=== PATIENT | male | born 1990 | race African-American/Black ===

== ENCOUNTER 2021-07-16 04:28 | Inpatient (IN) | payer OTHER ==
[2021-07-16] MEDS ORDERED: KETOROLAC 15 MG/ML 1 ML VIAL IVP STA (05:08)
[2021-07-16] MEDS ORDERED: CLINDAMYCIN 600 MG in DEXTROSE 5% IN WATER 50 ML IVPB STA ×2 (05:08)
[2021-07-16 05:42] LABS: Basophils # (A) 0.1 k/uL (0-0.2); Basophils % (A) 1 %; Eosinophils # (A) 0.3 k/uL (0-0.7); Eosinophils % (A) 2 %; HCT 42.8 % (39.0-53.0); HGB 14.3 gm/dL (13.0-17.5); Lymphocytes # (A) 1.9 k/uL (1.0-4.8); Lymphocytes % (A) 9 %; MCH 30.1 pg (25.0-35.0); MCHC 33.4 g/dL (31.0-37.0); MCV 90.3 fL (80.0-100.0); Mean Platelet Volume 7.7; Monocytes # (A) 0.9 k/uL (0-1.0); Monocytes % (A) 4 %; Neutrophils # (A) 18.7 k/uL (1.3-7.7); Neutrophils % (A) 85 %; Platelet Count 260 k/uL (150-450); RBC 4.74 m/uL (4.30-5.90); RDW 12.1 % (11.5-15.5); WBC 22.2 k/uL (3.8-10.6)
[2021-07-16 05:46] LABS: ALT 32 U/L (4-49); AST 25 U/L (17-59); African American GFR (CKD) >90 (>60 ml/min/1.73 sqM); Alkaline Phosphatase 111 U/L (38-126); Anion Gap 8 mmol/L; Blood Urea Nitrogen 13 mg/dL (9-20); Calcium 9.1 mg/dL (8.4-10.2); Carbon Dioxide 24 mmol/L (22-30); Chloride 103 mmol/L (98-107); Glucose 102 mg/dL (74-99); Non-African American GFR(CKD) >90 (>60 ml/min/1.73 sqM); Potassium 3.7 mmol/L (3.5-5.1); Sodium 135 mmol/L (137-145); Total Bilirubin 1.6 mg/dL (0.2-1.3); Total Protein 7.2 g/dL (6.3-8.2)
--- NOTE | 2021-07-16 06:01 | ED ---
ENT HPI - General Chief complaint: Dental/Oral Stated complaint: dental pain Time Seen by Provider: 07/16/21 04:51 Source: patient Mode of arrival: ambulatory Limitations: no limitations - History of Present Illness Initial comments: This patient is a 31-year-old man who presents here to have evaluation of left mandibular tooth pain and now swelling towards his neck. The patient had onset of pain and swelling to left mandibular tooth approximately 2 weeks ago. 2 weeks ago he saw a dentist who started him on penicillin and had and follow-up. 2 days ago he saw a dentist to placed him on azithromycin and had him go to see an oral surgeon. He saw the oral surgeon yesterday who started him on he believes it was Augmentin and was going to have him follow-up. When the pain worsened tonight and he was noticing more swelling he felt he should be seen here. The patient is not having any dyspnea. He is noting that he has difficulty opening his mandible without pain now. He is able to tolerate his own secretions. Swallowing is not difficult but there is some pain associated. He has not noted fever or chills. No cough. MD complaint: tooth pain, sore throat -: week(s) Location: tooth # (18) Severity: moderate Quality: aching Consistency: constant Improves with: none Worsens with: swallowing, eating Associated Symptoms: gum swelling, toothache, pain with swallowing - Related Data Allergies Allergy/AdvReac Type Severity Reaction Status Date / Time No Known Allergies Allergy Verified 07/16/21 04:45 Review of Systems ROS Statement: Those systems with pertinent positive or pertinent negative responses have been documented in the HPI. ROS Other: All systems not noted in ROS Statement are negative. Constitutional: Denies: fever, chills Eyes: Denies: eye pain, vision change ENT: Reports: throat pain, dental pain. Denies: ear pain Respiratory: Denies: cough, dyspnea, stridor Cardiovascular: Denies: chest pain, syncope Gastrointestinal: Denies: abdominal pain, vomiting Skin: Denies: rash Neurological: Denies: headache, weakness Past Medical History Past Medical History: No Reported History History of Any Multi-Drug Resistant Organisms: None Reported Additional Past Surgical History / Comment(s): dental - wisdom Past Psychological History: No Psychological Hx Reported Smoking Status: Current every day smoker Past Alcohol Use History: Occasional Past Drug Use History: None Reported General Exam Limitations: no limitations General appearance: alert, in no apparent distress Head exam: Present: atraumatic, normocephalic Eye exam: Present: normal appearance, PERRL, EOMI. Absent: scleral icterus, conjunctival injection, periorbital swelling, periorbital tenderness ENT exam: Present: mucous membranes moist, normal external ear exam, other (The patient has left sided facial swelling along the mandible and inferior to the mandible. There is also some tenderness and swelling to the anterior neck.) Neck exam: Present: tenderness, full ROM, other (Anterior neck swelling). Absent: normal inspection, meningismus Respiratory exam: Present: normal lung sounds bilaterally. Absent: respiratory distress, wheezes, rales, rhonchi, stridor Cardiovascular Exam: Present: regular rate, normal rhythm, normal heart sounds. Absent: systolic murmur, diastolic murmur, rubs, gallop Extremities exam: Present: normal inspection Neurological exam: Present: alert Skin exam: Present: warm, dry, intact, normal color. Absent: rash Course Vital Signs 07/16/21 04:43 Temperature 97.8 F Pulse Rate 75 Respiratory 18 Rate Blood Pressure 143/84 O2 Sat by Pulse 99 Oximetry Medical Decision Making - Lab Data Result diagrams: 07/16/21 05:08 07/16/21 05:08 Lab Results 07/16/21 07/16/21 Range/Units 05:08 05:08 WBC 22.2 H (3.8-10.6) k/uL RBC 4.74 (4.30-5.90) m/uL Hgb 14.3 (13.0-17.5) gm/dL Hct 42.8 (39.0-53.0) % MCV 90.3 (80.0-100.0) fL MCH 30.1 (25.0-35.0) pg MCHC 33.4 (31.0-37.0) g/dL RDW 12.1 (11.5-15.5) % Plt Count 260 (150-450) k/uL MPV 7.7 Neutrophils % 85 % Lymphocytes % 9 % Monocytes % 4 % Eosinophils % 2 % Basophils % 1 % Neutrophils # 18.7 H (1.3-7.7) k/uL Lymphocytes # 1.9 (1.0-4.8) k/uL Monocytes # 0.9 (0-1.0) k/uL Eosinophils # 0.3 (0-0.7) k/uL Basophils # 0.1 (0-0.2) k/uL Sodium 135 L (137-145) mmol/L Potassium 3.7 (3.5-5.1) mmol/L Chloride 103 (98-107) mmol/L Carbon Dioxide 24 (22-30) mmol/L Anion Gap 8 mmol/L BUN 13 (9-20) mg/dL Creatinine 0.69 (0.66-1.25) mg/dL Est GFR (CKD-EPI)AfAm >90 (>60 ml/min/1.73 sqM) Est GFR (CKD-EPI)NonAf >90 (>60 ml/min/1.73 sqM) Glucose 102 H (74-99) mg/dL Calcium 9.1 (8.4-10.2) mg/dL Total Bilirubin 1.6 H (0.2-1.3) mg/dL AST 25 (17-59) U/L ALT 32 (4-49) U/L Alkaline Phosphatase 111 (38-126) U/L Total Protein 7.2 (6.3-8.2) g/dL Albumin 4.0 (3.5-5.0) g/dL Disposition Clinical Impression: Dental infection Disposition: ADMITTED IP TO THIS HOSP Is patient prescribed a controlled substance at d/c from ED?: No Referrals: None,Stated [Primary Care Provider] - 1-2 days
--- NOTE | 2021-07-16 06:05 | CT ---
EXAMINATION TYPE: CT soft tissue neck wo con DATE OF EXAM: 07/16/2021 COMPARISON: None HISTORY: left lower jaw swelling and pain. had wisdom teeth removed [address] DLP: 330 mGycm Automated exposure control for dose reduction was used. Images obtained from the top of the frontal sinuses to the thoracic inlet with no contrast. Superior mediastinum appears normal. Thyroid gland is symmetric. There is soft tissue swelling at the angle of the left hemimandible. There are apparent multiple enlarged left-sided submandibular lymph nodes up to 2.3 cm. Submandibular salivary glands are symmetric. Parotid glands are symmetric. Exam l imited by lack of any contrast. Epiglottis is normal. Tongue appears normal. The tonsils and adenoids appear normal. There is mucosal thickening in the maxillary sinuses. Orbital margins are intact. No evidence of orbital mass. Sella turcica is normal. The cervical spine is intact. Zygomatic arches appear normal. Maxilla is intact. The mandibular ring is intact. There is defect in the left hemimandible at the site of wisdom tooth extraction. No evidence of focal bone destruction. IMPRESSION: Soft tissue swelling and adenopathy seen at the angle of the left hemimandible. This is consistent wi th inflammatory process. No drainable fluid collection. Mild maxillary sinusitis.
[2021-07-16] MEDS ORDERED: NALOXONE 0.4 MG/ML 1 ML VIAL IV PRN (06:31)
[2021-07-16] MEDS ORDERED: MORPHINE SULFATE 4 MG/ML SYRINGE IV PRN (06:31)
[2021-07-16] MEDS ORDERED: ACETAMINOPHEN TAB 325 MG TAB PO PRN (06:31)
[2021-07-16] MEDS: SODIUM CHLORIDE 0.9% 1,000 ML IV SCH ×2 (06:52→14:55)
--- NOTE | 2021-07-16 06:56 | CT ---
EXAMINATION TYPE: CT soft tissue neck w con DATE OF EXAM: 07/16/2021 HISTORY: dental infection COMPARISON: CT earlier today CT DLP: 352.2 mGycm. Automated Exposure Control for Dose Reduction was Utilized. TECHNIQUE: CT scan of the neck is performed with IV Contrast, patient injected with 100 mL of Isovue 300, axial images are obtained, coronal and sagittal reformatted images are reviewed. FINDINGS: Airway: Airway remains patent. Parotid/submandibular glands: No gross abnormality seen. Carotid/Vascular Structures: No gross abnormality. Osseous Structures: No significant abnormality Other: Some dependent fluid in the inferior left maxillary sinus with mild mucosal thickening redemon strated. Mild/moderate mucosal thickening with some dependent lobulated opacification favoring polyps in the right maxillary sinus redemonstrated. Moderate ill-defined fluid and fat stranding over the left mandible causing asymmetric thickening of the left platysmas muscle. There are reactive prominent but subcentimeter left submandibular and subm ental lymph nodes axial image 44 for reference. No well-formed fluid collection or drainable abscess is identified. There is artifact from multiple cavitary fillings and crowns in the bilateral maxillar y and mandibular teeth. There is absent left lateral third molar tooth with nonspecific lucency at th is level identified. Remainder of the chest show no definitive suspicious lucency or cavity near this level. No suspicious bony destruction otherwise seen. IMPRESSION: Persistent moderate diffuse soft tissue infection or cellulitis over the left mandible. N o well-formed fluid collection or drainable abscess.
[2021-07-16] MEDS ORDERED: AMPICILLIN-SULBACTAM 3 GM in SODIUM CHLORIDE 0.9% 100 ML IVPB SCH (08:00)
--- NOTE | 2021-07-16 10:09 | P.HPIM ---
History of Present Illness H&P Date: 07/16/21 Chief Complaint: Left tooth pain with neck swelling and redness This patient is a 31-year-old man who presents here to have evaluation of left mandibular tooth pain and now swelling towards his neck. The patient had onset of pain and swelling to left mandibular tooth approximately 2 weeks ago after he removed his left lower wisdom tooth the patient stated that the swelling progressed and got worse. 2 weeks ago he saw a dentist who started him on penicillin and had and follow-up. 2 days ago he saw the dentist to placed him on azithromycin and had him go to see an oral surgeon. He saw the oral surgeon yesterday who started him on he believes it was Augmentin and was going to have him follow-up. When the pain worsened tonight and he was noticing more swelling he felt he should be seen here. The patient is not having any dyspnea. He is noting that he has difficulty opening his mandible without pain now. He is able to tolerate his own secretions. He has not noted fever or chills. No cough. The patient reported difficulty swallowing. He denies any shortness of breath. He denies any chest pain. He denies any nausea vomiting or abdominal pain. Patient reports significant pain in his tooth and neck scribes as 8-10 out of 10. Review of Systems All 14 review of systems evaluated and all negative except for above. Past Medical History Past Medical History: No Reported History History of Any Multi-Drug Resistant Organisms: None Reported Past Surgical History: No Surgical Hx Reported Additional Past Surgical History / Comment(s): dental - wisdom Past Anesthesia/Blood Transfusion Reactions: Unable to Obtain Additional Past Anesthesia/Blood Transfusion Reaction / Comment(s): Pt has never had anesthesia Smoking Status: Former smoker - Past Family History Father Family Medical History: No Reported History Additional Family Medical History / Comment(s): Father is healthy Mother Family Medical History: No Reported History Additional Family Medical History / Comment(s): Mother is healthy Medications and Allergies Home Medications Medication Instructions Recorded Confirmed Type Amoxic-Pot Clav 875-125Mg See Taper PO DIRECTED 07/16/21 07/16/21 History [Augmentin 875-125] Azithromycin [Zithromax Z-pack (6 See Taper PO DAILY 07/16/21 07/16/21 History tabs)] Allergies Allergy/AdvReac Type Severity Reaction Status Date / Time No Known Allergies Allergy Verified 07/16/21 07:00 Physical Exam Vitals: Vital Signs Temp Pulse Resp BP Pulse Ox 07/16/21 07:15 80 16 130/88 98 07/16/21 04:43 97.8 F 75 18 143/84 99 Intake and Output 07/15/21 07/16/21 07/16/21 22:59 06:59 14:59 Other: Weight 83.915 kg 83.915 kg General: Mild to moderate distress Derm: warm, dry Head: atraumatic, normocephalic, left facial swelling and erythema with induration below the left mandible with tenderness to palpation Eyes: EOMI, no lid lag, anicteric sclera Mouth: no lip lesion, mucus membranes moist Cardiovascular: S1S2 reg, no murmur, positive posterior tibial pulse bilateral, Lungs: CTA bilateral, no rhonchi, no rales , no accessory muscle use Abdominal: soft, nontender to palpation, no guarding, no appreciable organomegaly Ext: no gross muscle atrophy, no edema, no contractures Neuro: CN II-XI grossly intact, no focal neuro deficits Psych: Alert, oriented, appropriate affect Results CBC & Chem 7: 07/16/21 05:08 07/16/21 05:08 Labs: Abnormal Lab Results - Last 24 Hours (Table) 07/16/21 07/16/21 Range/Units 05:08 05:08 WBC 22.2 H (3.8-10.6) k/uL Neutrophils # 18.7 H (1.3-7.7) k/uL Sodium 135 L (137-145) mmol/L Glucose 102 H (74-99) mg/dL Total Bilirubin 1.6 H (0.2-1.3) mg/dL Thrombosis Risk Factor Assmnt - Choose All That Apply Any of the Below Risk Factors Present?: Yes Each Factor Represents 1 point: Obesity (BMI >25) Other Risk Factors: No Other congenital or acquired thrombophilia - If yes, enter type in comment: No Thrombosis Risk Factor Assessment Total Risk Factor Score: 1 Thrombosis Risk Factor Assessment Level: Low Risk Assessment and Plan Assessment: #Left tooth infection with neck cellulitis -Computed tomography scan showed no evidence of abscess or fluid collection -Patient reports difficulty swallowing -Oral surgeon doctor Mahad consulted by ER. -Start IV Decadron -Start IV Unasyn -IV fluids and pain control -Blood culture x2 ordered in the emergency room -Check lactic acid level and CRP -Keep the patient nothing by mouth -Infectious disease consultation #Full code
[2021-07-16] MEDS: HYDROcodone/APAP 5-325MG 1 EACH TAB PO PRN ×3 (11:21→20:32)
[2021-07-16] MEDS: DEXAMETHASONE SOD PHOSPHATE 4 MG/ML 1 ML VIAL IVP SCH ×2 (11:24→17:25)
[2021-07-16] MEDS ORDERED: CLINDAMYCIN 600 MG/50 ML-D5W 600 MG in DEXTROSE/WATER 1 50ML.BAG IVPB SCH (14:00)
--- NOTE | 2021-07-16 17:06 | P.GSCN ---
History of Present Illness Consult date: 07/16/21 Reason for Consult: Abscess of left neck Requesting physician: Gato Berg History of present illness: This pleasant gentleman is a 31-year-old male who presented to the hospital for evaluation of his swelling in the left neck with significant pain. The patient had a carious wisdom tooth removed on 06/28/2021. At that time he reported taking his penicillin prescription and noticed that there was some swelling of t he jaw postoperatively. The patient felt this was in the normal but after a week but didn't resolve and he thought it might be getting worse. He did admit that he probably should've gone in to see someone sooner but he reports that he tends to procrastinate these things. 3 days ago Patient went into his general dentist in [place] for some work on the upper and at the time that patient was started on azithromycin. Yesterday he was seen again in our office or my partner changed him to Augmentin and reported that his swelling got worse he should go to the emergency room if he having difficulty swallowing. Last night the patient had some significant jaw pain that increased and he felt like swe lling was impinging on his airway was difficulty swallowing at that time he was admitted through the [facility] ER. ER note reports that he did not have any trouble tolerating his secretions but he did have difficulty opening his mouth. Today the patient's up in bed and comfortable reports that P steroids have helped him immensely his pain level is much reduced. Denies any trouble breat kehinde or swallowing is having no trouble with secretions and would like to eat. Review of Systems Per HPI Past Medical History Past Medical History: No Reported History History of Any Multi-Drug Resistant Organisms: None Reported Past Surgical History: No Surgical Hx Reported Additional Past Surgical History / Comment(s): dental - wisdom Past Anesthesia/Blood Transfusion Reactions: Unable to Obtain Additional Past Anesthesia/Blood Transfusion Reaction / Comm: Pt has never had anesthesia Smoking Status: Former smoker - Past Family History Father Family Medical History: No Reported History Additional Family Medical History / Comment(s): Father is healthy Mother Family Medical History: No Reported History Additional Family Medical History / Comment(s): Mother is healthy Medications and Allergies Home Medications Medication Instructions Recorded Confirmed Type Amoxic-Pot Clav 875-125Mg See Taper PO DIRECTED 07/16/21 07/16/21 History [Augmentin 875-125] Azithromycin [Zithromax Z-pack (6 See Taper PO DAILY 07/16/21 07/16/21 History tabs)] Allergies Allergy/AdvReac Type Severity Reaction Status Date / Time No Known Allergies Allergy Verified 07/16/21 07:00 Surgical - Exam Vital Signs Temp Pulse Resp BP Pulse Ox 97.8 F 75 18 143/84 99 07/16/21 04:43 07/16/21 04:43 07/16/21 04:43 07/16/21 04:43 07/16/21 04:43 Patient alert and oriented 3 in good spirits. He reports his pain is much better with pain medication probably a 1 out of 10. Does have trouble opening greater than 20 mm. Intraorally limited swelling near the alveolus of the mandible in the area of tooth #17 and 18. Uvula is midline no floor of mouth swelling. Extraorally the patient has a 2 cm x 3 cm firm swelling the submandibular area. This swelling is tender to palpation appears to be pointing in the inferior posterior direction. Computed tomography scan reviewed showed what could be an abscess forming on the submandibular area of the mandible. Results Computed tomography scan reviewed - Labs 07/16/21 05:08 07/16/21 05:08 Abnormal Lab Results - Last 24 Hours (Table) 07/16/21 07/16/21 07/16/21 Range/Units 05:08 05:08 10:19 WBC 22.2 H (3.8-10.6) k/uL Neutrophils # 18.7 H (1.3-7.7) k/uL Sodium 135 L (137-145) mmol/L Glucose 102 H (74-99) mg/dL Total Bilirubin 1.6 H (0.2-1.3) mg/dL C-Reactive Protein 7.2 H (<1.0) mg/dL Diabetes panel 07/16/21 Range/Units 05:08 Sodium 135 L (137-145) mmol/L Potassium 3.7 (3.5-5.1) mmol/L Chloride 103 (98-107) mmol/L Carbon Dioxide 24 (22-30) mmol/L BUN 13 (9-20) mg/dL Creatinine 0.69 (0.66-1.25) mg/dL Glucose 102 H (74-99) mg/dL Calcium 9.1 (8.4-10.2) mg/dL AST 25 (17-59) U/L ALT 32 (4-49) U/L Alkaline Phosphatase 111 (38-126) U/L Total Protein 7.2 (6.3-8.2) g/dL Albumin 4.0 (3.5-5.0) g/dL Calcium panel 07/16/21 Range/Units 05:08 Calcium 9.1 (8.4-10.2) mg/dL Albumin 4.0 (3.5-5.0) g/dL Pituitary panel 07/16/21 Range/Units 05:08 Sodium 135 L (137-145) mmol/L Potassium 3.7 (3.5-5.1) mmol/L Chloride 103 (98-107) mmol/L Carbon Dioxide 24 (22-30) mmol/L BUN 13 (9-20) mg/dL Creatinine 0.69 (0.66-1.25) mg/dL Glucose 102 H (74-99) mg/dL Calcium 9.1 (8.4-10.2) mg/dL Adrenal panel 07/16/21 Range/Units 05:08 Sodium 135 L (137-145) mmol/L Potassium 3.7 (3.5-5.1) mmol/L Chloride 103 (98-107) mmol/L Carbon Dioxide 24 (22-30) mmol/L BUN 13 (9-20) mg/dL Creatinine 0.69 (0.66-1.25) mg/dL Glucose 102 H (74-99) mg/dL Calcium 9.1 (8.4-10.2) mg/dL Total Bilirubin 1.6 H (0.2-1.3) mg/dL AST 25 (17-59) U/L ALT 32 (4-49) U/L Alkaline Phosphatase 111 (38-126) U/L Total Protein 7.2 (6.3-8.2) g/dL Albumin 4.0 (3.5-5.0) g/dL Assessment and Plan Assessment: Left neck abscess in the submandibular area appears to be associated with jaw making a most likely related to previously infected #17. Plan: Since the tooth is previously been removed the patient is now on IV antibiotics he seems to be improving somewhat. I feel that his infection is pointing towards the skin and could possibly spontaneously drained but I feel that controlled I&D possibly with cultures will help him heal more controlled manner and could speed up the healing. Of course if the infection were to worsen and the airway embarrassment were to return and I&D would become absolutely necessary. At this point plan to place the patient on the on-call lower list for tomorrow and keep the patient nothing by mouth tonight. Time with Patient: Greater than 30 (Educated patient about his condition and walked around the operating room in order to facilitate patient's can reconditioner OR boarding)
[2021-07-16] MEDS: AMPICILLIN-SULBACTAM 3 GM in SODIUM CHLORIDE 0.9% 100 ML IVPB SCH (17:24)
--- NOTE | 2021-07-16 21:13 | P.CONS ---
History of Present Illness - Reason for Consult Consult date: 07/16/21 Left lower jaw infection Requesting physician: Ning Zamarripa - Chief Complaint Left lower jaw pain 1 week - History of Present Illness Patient is a 31-year-old -[place] male started having a problem with the left lower jaw tooth and one of the teeth has been x-rayed in the outpatient setting on 06/28/2021 patient apparently has been treated with a penicillin as he did have some swelling of the jaw postoperatively afterwards the patient started having a increasing swelling and pain to the left lower jaw patient describes the pain to be throbbing almost 10 out of 10 with no radiation denies any difficulty swallowing or difficulty breathing with the symptoms the patient presented to the ER on presentation to the hospital patient was afebrile did have white count of 22.2 with a left shift creatinine was normal CRP of 7.2 no exams are normal patient did have a CT of the soft tissue of the neck moderate diffuse soft tissue infection with cellulitis no definite fluid formation patient was started on Unasyn and clindamycin has been admitted to hospital infectious disease was consulted for further management of antibiotic therapy Review of Systems Positive point has been mentioned in the HPI rest of the systems are negative Past Medical History Past Medical History: No Reported History History of Any Multi-Drug Resistant Organisms: None Reported Past Surgical History: No Surgical Hx Reported Additional Past Surgical History / Comment(s): dental - wisdom Past Anesthesia/Blood Transfusion Reactions: Unable to Obtain Additional Past Anesthesia/Blood Transfusion Reaction / Comm: Pt has never had anesthesia Smoking Status: Former smoker - Past Family History Father Family Medical History: No Reported History Additional Family Medical History / Comment(s): Father is healthy Mother Family Medical History: No Reported History Additional Family Medical History / Comment(s): Mother is healthy Medications and Allergies Home Medications Medication Instructions Recorded Confirmed Type Amoxic-Pot Clav 875-125Mg See Taper PO DIRECTED 07/16/21 07/16/21 History [Augmentin 875-125] Azithromycin [Zithromax Z-pack (6 See Taper PO DAILY 07/16/21 07/16/21 History tabs)] Allergies Allergy/AdvReac Type Severity Reaction Status Date / Time No Known Allergies Allergy Verified 07/16/21 07:00 Physical Exam Vitals: Vital Signs Temp Pulse Resp BP Pulse Ox 07/16/21 07:15 80 16 130/88 98 07/16/21 04:43 97.8 F 75 18 143/84 99 Intake and Output 07/15/21 07/16/21 07/16/21 22:59 06:59 14:59 Other: Weight 83.915 kg 83.915 kg GENERAL DESCRIPTION: Middle-aged male lying in bed, no distress. No tachypnea or accessory muscle of respiration use. HEENT: Shows Pallor , no scleral icterus. Oral mucous membrane is dry. Left lower jaw with significant swelling and tenderness NECK: Trachea central, no thyromegaly. LUNGS: Unlabored breathing. Clear to auscultation anteriorly. No wheeze or cr ackle. HEART: S1, S2, regular rate and rhythm. No loud murmur ABDOMEN: Soft, no tenderness , guarding or rigidity, no organomegaly EXTREMITIES: No edema of feet. SKIN: No rash, no masses palpable. NEUROLOGICAL: The patient is awake, alert, oriented x3, mood and affect normal. Results CBC & Chem 7: 07/16/21 05:08 07/16/21 05:08 Labs: Abnormal Lab Results - Last 24 Hours (Table) 07/16/21 07/16/21 07/16/21 Range/Units 05:08 05:08 10:19 WBC 22.2 H (3.8-10.6) k/uL Neutrophils # 18.7 H (1.3-7.7) k/uL Sodium 135 L (137-145) mmol/L Glucose 102 H (74-99) mg/dL Total Bilirubin 1.6 H (0.2-1.3) mg/dL C-Reactive Protein 7.2 H (<1.0) mg/dL Assessment and Plan (1) Dental infection Current Visit: Yes Status: Acute Code(s): K04.7 - PERIAPICAL ABSCESS WITHOUT SINUS SNOMED Code(s): 073833955 Plan: 1patient presented to hospital with extensive left lower jaw cellulitis this patient who recently did have a extraction of the left lower jaw [place] tooth with a postoperative infection failure to respond to outpatient oral penicillin followed by Zithromax therapy, now with a CT did shows extensive cellulitis with no drainable abscess, oral surgery has been consulted for need for surgical drainage 2-continue the patient on Unasyn 3 g every 6 hours however discontinue clindamycin We will follow on clinical condition and cultures to further adjust medication if needed Thank you for this consultation will follow this patient along with you Time with Patient: Greater than 30
[2021-07-17] MEDS: DEXAMETHASONE SOD PHOSPHATE 4 MG/ML 1 ML VIAL IVP SCH ×3 (00:13→17:24)
[2021-07-17] MEDS: HYDROcodone/APAP 5-325MG 1 EACH TAB PO PRN ×5 (00:13→23:55)
[2021-07-17] MEDS: AMPICILLIN-SULBACTAM 3 GM in SODIUM CHLORIDE 0.9% 100 ML IVPB SCH ×5 (00:14→23:55)
[2021-07-17] MEDS: SODIUM CHLORIDE 0.9% 1,000 ML IV SCH ×4 (00:18→22:49)
[2021-07-17 08:48] LABS: MCH 29.7 pg (27.0-32.0); MCHC 32.5 g/dL (32.0-37.0); MCV 91.3 fL (80.0-97.0); Mean Platelet Volume 10.5 fL (9.5-12.2); NRBC Per 100 WBC 0 /100 WBCS (0.0-0.0); Platelet Count 296 X 10*3/uL (140-440); RBC 4.38 X 10*6/uL (4.40-5.60); RDW 12.7 % (11.5-14.5); WBC 23.15 X 10*3/uL (4.50-10.00)
[2021-07-17 08:59] LABS: African American GFR (CKD) 146.8 (60.0-200.0); Albumin/Globulin Ratio 1.6 (1.60-3.17); Anion Gap 12.1 mmol/L (10.00-18.00); BUN/Creat Ratio 12.29 Ratio (12.00-20.00); Blood Urea Nitrogen 8.6 mg/dL (9.0-27.0); Calcium 9.4 mg/dL (8.7-10.3); Carbon Dioxide 24.9 mmol/L (20.0-27.5); Globulin 2.5 g/dL (1.6-3.3); Magnesium 2.4 mg/dL (1.5-2.4); Non-African American GFR(CKD) 126.6 (60.0-200.0); Total Bilirubin 0.4 mg/dL (0.30-1.20); Total Protein 6.5 g/dL (6.2-8.2)
[2021-07-17 09:41] LABS: Basophils # (A) 0.04 X 10*3/uL (0.00-0.10); Basophils % (A) 0.2 %; Eosinophils # (A) 0 X 10*3/uL (0.04-0.35); Eosinophils % (A) 0 %; Immature Grans, Automated 0.8 %; Lymphocytes % (A) 5.2 %; Monocytes # (A) 0.81 X 10*3/uL (0.20-1.00); Monocytes % (A) 3.5 %; Neutrophils # (A) 20.92 X 10*3/uL (1.80-7.70); Neutrophils % (A) 90.3 %; RBC Morphology NORMAL
[2021-07-17] MEDS ORDERED: fentaNYL (PF) 50 MCG/ML 2 ML AMP ONE (10:20)
[2021-07-17] MEDS ORDERED: PROPOFOL 10 MG/ML 20 ML VIAL IV ONE (10:20)
[2021-07-17] MEDS ORDERED: MIDAZOLAM 2 MG/2 ML VIAL ONE (10:20)
[2021-07-17] MEDS ORDERED: LIDOCAINE 1% INJ 10MG/ML (20 ML MDV) ONE (10:20)
[2021-07-17] MEDS ORDERED: SUCCINYLCHOLINE CHLORIDE 100 MG/5 ML SYR IV ONE (10:20)
[2021-07-17] MEDS ORDERED: IV FLUID CONTINUATION 1,000 ML IV ONE (10:24)
[2021-07-17] MEDS ORDERED: LIDOCAINE 2% INJ 20 MG/ML SQ ONE (10:36)
[2021-07-17 10:37] VITALS: BMI 26.5
--- NOTE | 2021-07-17 10:47 | P.OP ---
Date of Procedure: 07/17/21 Preoperative Diagnosis: Dental abscess of left neck submandibular region Postoperative Diagnosis: Same Procedure(s) Performed: Extraoral incision and drainage of left neck abscess with placement of Lizzy drain. Aerobic anaerobic cultures. Wound debridement. Implants: Quarter-inch Lizzy drain Anesthesia: KRISTOFERA Surgeon: Daryn Arcos Estimated Blood Loss (ml): 10 IV fluids (ml): 400 Urine output (ml): 0 Pathology: other (Anaerobic and aerobic cultures) Condition: stable Disposition: PACU Indications for Procedure: Patient was admitted with left neck swelling and reported increased pain and difficulty with swallowing and change in voice. Upon admission the patient had received IV antibiotics and steroids which is improved his condition. Patient does have pointed Approximately 2 cm x 3 cm of the submandibular region. Patient's continuing on IV antibiotics but I feel a dependent drainage will increase his recovery as well as allow us to ensure that the antibiotic cultures are appropriate Operative Findings: None Description of Procedure: Patient seen in the preoperative holding area consent reviewed with the patient including but not limited to prolonged drainage scarring bleeding pain infection and swelling. Limited opening. Need for additional procedures. Prolonged hospital course. he was then brought to the operating room. Placed in the supine position and intubated per the anesthesia record. Prepped and draped with Betadine on the skin. The field was isolated sterilely and a 1 inch skin incision was placed along the skin fold . Blunt dissection with hemostat was started up towards the mandibular angle. Almost immediately 20 mL of bloody yellow pus was expressed without difficulty from the drain site a and aerobic and anaerobic cultures were obtained. 40 mL of saline was used to flush out this infection site. A 2-1/2 inch quarter inch Shushan drain was placed up against the inferior lingual border of the mandibular cortex near the site of tooth #17. The drain was secured with 1 3-0 silk suture. The dressing was placed and the patient awaits extubation and transfer back to the floor.
[2021-07-17] MEDS ORDERED: fentaNYL (PF) 50 MCG/ML 2 ML AMP IVP ONE (11:32)
[2021-07-17] MEDS ORDERED: HYDROmorphone 0.5 MG/0.5 ML SYRINGE IVP ONE ×2 (11:33→11:57)
[2021-07-17] MEDS ORDERED: ONDANSETRON 4 MG/2 ML VIAL IVP ONE (11:51)
[2021-07-17] MEDS ORDERED: KETOROLAC 15 MG/ML 1 ML VIAL IVP ONE (11:51)
--- NOTE | 2021-07-17 15:09 | P.PN ---
Subjective Progress Note Date: 07/17/21 History of Present Illness H&P Date: 07/16/21 Chief Complaint: Left tooth pain with neck swelling and redness This patient is a 31-year-old man who presents here to have evaluation of left mandibular tooth pain and now swelling towards his neck. The patient had onset of pain and swelling to left mandibular tooth approximately 2 weeks ago after he removed his left lower wisdom tooth the patient stated that the swelling progressed and got worse. 2 weeks ago he saw a dentist who started him on penicillin and had and follow-up. 2 days ago he saw the dentist to placed him on azithromycin and had him go to see an oral surgeon. He saw the oral surgeon yesterday who started him on he believes it was Augmentin and was going to have him follow-up. When the pain worsened tonight and he was noticing more swelling he felt he should be seen here. The patient is not having any dyspnea. He is noting that he has difficulty opening his mandible without pain now. He is able to tolerate his own secretions. He has not noted fever or chills. No cough. The patient reported difficulty swallowing. He denies any shortness of breath. He denies any chest pain. He denies any nausea vomiting or abdominal pain. Patient reports significant pain in his tooth and neck scribes as 8-10 out of 10. Interval history: 07/17 patient was seen and examined at the bedside. Status post I&D of the left neck abscess by oral surgeon. Patient reports improvement after surgery. Otherwise no acute changes overnight Objective - Vital Signs Vital signs: Vital Signs Temp 98.1 F 07/17/21 08:19 Pulse 54 L 07/17/21 12:08 Resp 16 07/17/21 12:08 BP 121/77 07/17/21 12:08 Pulse Ox 100 07/17/21 12:08 Intake & Output 07/16/21 07/17/21 07/17/21 18:59 06:59 18:59 Intake Total 200 900 Output Total 10 Balance 200 890 Weight 83.915 kg 83.915 kg Intake: IV 900 Intake, IV Titration 200 Amount Ampicillin-Sulbactam 3 gm 200 In Sodium Chloride 0.9% 100 ml @ 200 mls/hr IVPB Q6HR [facility] Rx#:[id number] Output: Estimated Blood Loss 10 Other: Voiding Method Toilet Toilet Toilet # Voids 2 - Exam General: non toxic, no distress, appears at stated age Derm: warm, dry Head: atraumatic, normocephalic, symmetric Eyes: EOMI, no lid lag, anicteric sclera Mouth: no lip lesion, mucus membranes moist. Right neck swelling is improving status post I&D of the left neck. Wound covered by dressing. Cardiovascular: S1S2 reg, no murmur, positive posterior tibial pulse bilateral, Lungs: CTA bilateral, no rhonchi, no rales , no accessory muscle use Abdominal: soft, nontender to palpation, no guarding, no appreciable organomegaly Ext: no gross muscle atrophy, no edema, no contractures Neuro: CN II-XI grossly intact, no focal neuro deficits Psych: Alert, oriented, appropriate affect - Labs CBC & Chem 7: 07/17/21 03:55 07/17/21 03:55 Labs: Abnormal Lab Results - Last 24 Hours (Table) 07/17/21 07/17/21 Range/Units 03:55 03:55 WBC 23.15 H (4.50-10.00) X 10*3/uL RBC 4.38 L (4.40-5.60) X 10*6/uL Immature Gran # 0.18 H (0.00-0.04) X 10*3/uL Neutrophils # 20.92 H (1.80-7.70) X 10*3/uL Eosinophils # 0 L (0.04-0.35) X 10*3/uL BUN 8.6 L (9.0-27.0) mg/dL Glucose 122 H (70-110) mg/dL AST 11 L (14-35) U/L Microbiology - Last 24 Hours (Table) 07/16/21 05:23 Blood Culture - Preliminary Blood No Growth after 24 hours 07/16/21 05:08 Blood Culture - Preliminary Blood No Growth after 24 hours Assessment and Plan Assessment: #Left tooth infection with left neck abscess -Computed tomography scan showed no evidence of abscess or fluid collection -Status post I&D July 17 -Start IV Unasyn -Patient of liquid diet -Infectious disease following #Full code
--- NOTE | 2021-07-17 16:16 | P.PN ---
Subjective Progress Note Date: 07/17/21 Principal diagnosis: Left lower jaw abscess and cellulitis Patient is a 31-year-old -Fil[place] male who recently did have left lower wisdom tooth extraction subsequently noticed having increasing swelling and pain to the left lower jaw concerning for left periodontal abscess failing outpatient oral amoxicillin and Zithromax therapy. The patient is status post surgical dr tristan of this abscess by oral surgery this morning. On today's evaluation that is 07/17/2021, the patient denies having any fever or any chills, the patient overall pain and discomfort in the left lower jaw has decreased in intensity, patient denies having any chest pain or shortness of breath or cough no nausea no vomiting no abdominal pain and no diarrhea Objective - Vital Signs Vital signs: Vital Signs Temp 98.1 F 07/17/21 08:19 Pulse 54 L 07/17/21 12:08 Resp 16 07/17/21 12:08 BP 121/77 07/17/21 12:08 Pulse Ox 100 07/17/21 12:08 Intake & Output 07/16/21 07/17/21 07/17/21 18:59 06:59 18:59 Intake Total 200 900 Output Total 10 Balance 200 890 Weight 83.915 kg 83.915 kg Intake: IV 900 Intake, IV Titration 200 Amount Ampicillin-Sulbactam 3 gm 200 In Sodium Chloride 0.9% 100 ml @ 200 mls/hr IVPB Q6HR [facility] Rx#:[id number] Output: Estimated Blood Loss 10 Other: Voiding Method Toilet Toilet Toilet # Voids 2 - Exam GENERAL DESCRIPTION: A middle-aged male lying in bed in no distress HEENT : Left lower jaw is currently dressed no drainage on the dressing RESPIRATORY SYSTEM: Unlabored breathing , decreased breath sounds at bases HEART: S1 S2 regular rate and rhythm , ABDOMEN: Soft , no tenderness EXTREMITIES: No edema feet - Labs CBC & Chem 7: 07/17/21 03:55 07/17/21 03:55 Labs: Abnormal Lab Results - Last 24 Hours (Table) 07/17/21 07/17/21 Range/Units 03:55 03:55 WBC 23.15 H (4.50-10.00) X 10*3/uL RBC 4.38 L (4.40-5.60) X 10*6/uL Immature Gran # 0.18 H (0.00-0.04) X 10*3/uL Neutrophils # 20.92 H (1.80-7.70) X 10*3/uL Eosinophils # 0 L (0.04-0.35) X 10*3/uL BUN 8.6 L (9.0-27.0) mg/dL Glucose 122 H (70-110) mg/dL AST 11 L (14-35) U/L Microbiology - Last 24 Hours (Table) 07/16/21 05:23 Blood Culture - Preliminary Blood No Growth after 24 hours 07/16/21 05:08 Blood Culture - Preliminary Blood No Growth after 24 hours Assessment and Plan (1) Dental infection Current Visit: Yes Status: Acute Code(s): K04.7 - PERIAPICAL ABSCESS WITHOUT SINUS SNOMED Code(s): 355066264 Plan: 1patient presented to hospital with extensive left lower jaw cellulitis this patient who recently did have a extraction of the left lower jaw wisdom tooth with a postoperative infection failure to respond to outpatient oral penicillin followed by Zithromax therapy, now with a CT did shows extensive cellulitis with no drainable abscess, oral surgery has seen the patient and the patient is status post surgical drainage of the abscess culture has been obtained which are currently pending 2-patient to continue with Unasyn 3 g every 6 hours while waiting for the culture to be finalize Time with Patient: Less than 30
[2021-07-17 22:44] VITALS: TEMP 98.5
[2021-07-18] MEDS: HYDROcodone/APAP 5-325MG 1 EACH TAB PO PRN ×3 (03:44→12:17)
[2021-07-18] MEDS: SODIUM CHLORIDE 0.9% 1,000 ML IV SCH (05:42)
[2021-07-18] MEDS: AMPICILLIN-SULBACTAM 3 GM in SODIUM CHLORIDE 0.9% 100 ML IVPB SCH ×2 (05:49→12:18)
[2021-07-18 08:31] VITALS: BP 134/75; PULSE 62; RESP 18
[2021-07-18 09:08] LABS: Basophils # (A) 0.03 X 10*3/uL (0.00-0.10); Basophils % (A) 0.2 %; Eosinophils # (A) 0.01 X 10*3/uL (0.04-0.35); Eosinophils % (A) 0.1 %; HCT 36.4 % (39.6-50.0); HGB 11.9 g/dL (13.0-17.0); Immature Grans, Automated 0.4 %; Lymphocytes # (A) 3.36 X 10*3/uL (0.90-5.00); Lymphocytes % (A) 19.6 %; MCHC 32.7 g/dL (32.0-37.0); MCV 91.7 fL (80.0-97.0); Mean Platelet Volume 10.9 fL (9.5-12.2); Monocytes # (A) 0.96 X 10*3/uL (0.20-1.00); Monocytes % (A) 5.6 %; NRBC Per 100 WBC 0 /100 WBCS (0.0-0.0); Neutrophils # (A) 12.74 X 10*3/uL (1.80-7.70); Neutrophils % (A) 74.1 %; Platelet Count 294 X 10*3/uL (140-440); RBC 3.97 X 10*6/uL (4.40-5.60); RDW 12.8 % (11.5-14.5); WBC 17.17 X 10*3/uL (4.50-10.00)
[2021-07-18 09:29] LABS: African American GFR (CKD) 146.8 (60.0-200.0); Albumin 3.5 g/dL (3.8-4.9); Albumin/Globulin Ratio 1.67 (1.60-3.17); Anion Gap 10.3 mmol/L (10.00-18.00); BUN/Creat Ratio 14.71 Ratio (12.00-20.00); Blood Urea Nitrogen 10.3 mg/dL (9.0-27.0); Calcium 8.8 mg/dL (8.7-10.3); Carbon Dioxide 23.7 mmol/L (20.0-27.5); Globulin 2.1 g/dL (1.6-3.3); Magnesium 2.2 mg/dL (1.5-2.4); Non-African American GFR(CKD) 126.6 (60.0-200.0); Potassium 4.2 mmol/L (3.5-5.5); Total Bilirubin 0.3 mg/dL (0.30-1.20); Total Protein 5.6 g/dL (6.2-8.2)
--- NOTE | 2021-07-18 10:33 | P.PN ---
Subjective Progress Note Date: 07/18/21 Principal diagnosis: Left neck abscess. Patient's 24 hours from I and D of left neck. Aerobic anaerobic cultures are pending. Patient's tolerating Unasyn IV every 6 hours. Patient showered yesterday is much better pain is greatly diminished. Objective - Vital Signs Vital signs: Vital Signs Temp 98.5 F 07/18/21 07:00 Pulse 62 07/18/21 07:00 Resp 18 07/18/21 07:00 BP 134/75 07/18/21 07:00 Pulse Ox 100 07/18/21 07:00 Intake & Output 07/17/21 07/18/21 07/18/21 18:59 06:59 18:59 Intake Total 900 Output Total 10 Balance 890 Weight 83.915 kg Intake: IV 900 Output: Estimated Blood Loss 10 Other: Voiding Method Toilet Toilet Toilet # Voids 3 2 - Exam Patient resting comfortably in bed with his feels much better reports pain is minimal able open his mouth. Alert and oriented 3. Patient's dressing today has minimal discharge less than 5 mL over past 24 hours. - Labs CBC & Chem 7: 07/18/21 03:39 07/18/21 03:39 Labs: Abnormal Lab Results - Last 24 Hours (Table) 07/18/21 07/18/21 Range/Units 03:39 03:39 WBC 17.17 H (4.50-10.00) X 10*3/uL RBC 3.97 L (4.40-5.60) X 10*6/uL Hgb 11.9 L (13.0-17.0) g/dL Hct 36.4 L (39.6-50.0) % Immature Gran # 0.07 H (0.00-0.04) X 10*3/uL Neutrophils # 12.74 H (1.80-7.70) X 10*3/uL Eosinophils # 0.01 L (0.04-0.35) X 10*3/uL AST 13 L (14-35) U/L Total Protein 5.6 L (6.2-8.2) g/dL Albumin 3.5 L (3.8-4.9) g/dL Microbiology - Last 24 Hours (Table) 07/17/21 10:41 Gram Stain - Preliminary Neck Wound Culture - Preliminary 07/17/21 10:41 Gram Stain - Preliminary Neck Wound Culture - Preliminary 07/16/21 05:23 Blood Culture - Preliminary Blood No Growth after 48 hours 07/16/21 05:08 Blood Culture - Preliminary Blood No Growth after 48 hours 07/17/21 10:41 Anaerobic Culture - Preliminary Neck 07/17/21 10:41 Anaerobic Culture - Preliminary Neck Assessment and Plan Assessment: Left neck abscess in the submandibular area appears to be associated with jaw making a most likely related to previously infected #17. 24 hour status post I&D left neck Plan: Patient has made great improvements. Due to the copious amount of purulence was expressed and the operation, his overnight discharge has been minimal. This morning the drain output was indicative of drain removal. The drain was removed without difficulty and redressed with instructions given to patient and . The cultures were still pending but clinically Unasyn appears to be working very well. At this point I'm recommending discharge if medically stable and am recommending outpatient Augmentin for 10 days. Patient follow-up in my office tomorrow and instructions given to and patient regarding follow-up if the patient is discharged.
--- NOTE | 2021-07-18 17:13 | P.DS ---
Providers Date of admission: 07/16/21 13:21 Attending physician: Shaun Hansen MD Consults: 07/16/21 06:32 Consult Physician Urgent Consulting Provider: Momo Tobin Consult Reason/Comments: Dental infection Do you want consulting provider notified?: Already Contacted 07/16/21 07:40 Consult Physician Routine Consulting Provider: [facility] Consult Reason/Comments: tooth infection Do you want consulting provider notified?: Yes Primary care physician: Stated None Hospital Course: History of Present Illness H&P Date: 07/16/21 Chief Complaint: Left tooth pain with neck swelling and redness This patient is a 31-year-old man who presents here to have evaluation of left mandibular tooth pain and now swelling towards his neck. The patient had onset of pain and swelling to left mandibular tooth approximately 2 weeks ago after he removed his left lower wisdom tooth the patient stated that the swelling progressed and got worse. 2 weeks ago he saw a dentist who started him on penicillin and had and follow-up. 2 days ago he saw the dentist to placed him on azithromycin and had him go to see an oral surgeon. He saw the oral surgeon yesterday who started him on he believes it was Augmentin and was going to have him follow-up. When the pain worsened tonight and he was noticing more swelling he felt he should be seen here. The patient is not having any dyspnea. He is noting that he has difficulty opening his mandible without pain now. He is able to tolerate his own secretions. He has not noted fever or chills. No cough. The patient reported difficulty swallowing. He denies any shortness of breath. He denies any chest pain. He denies any nausea vomiting or abdominal pain. Patient reports significant pain in his tooth and neck scribes as 8-10 out of 10. Physical examination on discharge: General: non toxic, no distress, appears at stated age Derm: warm, dry Head: atraumatic, normocephalic, symmetric Eyes: EOMI, no lid lag, anicteric sclera Mouth: no lip lesion, mucus membranes moist. Right neck swelling is improving status post I&D of the left neck. Wound covered by dressing. Cardiovascular: S1S2 reg, no murmur, positive posterior tibial pulse bilateral, Lungs: CTA bilateral, no rhonchi, no rales , no accessory muscle use Abdominal: soft, nontender to palpation, no guarding, no appreciable organomegaly Ext: no gross muscle atrophy, no edema, no contractures Neuro: CN II-XI grossly intact, no focal neuro deficits Psych: Alert, oriented, appropriate affect #Left tooth infection with left neck abscess -Computed tomography scan showed no evidence of abscess or fluid collection -Status post I&D of the left neck abscess July 17 - Unasyn switched to by mouth Augmentin for 10 days after discharge -Patient denied was advanced and tolerated -Oral surgeon cleared the patient for discharge Patient Condition at Discharge: Stable Plan - Discharge Summary Discharge Rx Participant: No New Discharge Prescriptions: New Amoxicillin/Potassium Clav [Augmentin 875-125 Tablet] 1 tab PO Q12HR 10 Days #20 tab HYDROcodone/APAP 5-325MG [[place] 5-325] 1 each PO Q6HR PRN 3 Days #12 tab PRN Reason: Moderate Pain Discontinued Azithromycin [Zithromax Z-pack (6 tabs)] See Taper PO DAILY Amoxic-Pot Clav 875-125Mg [Augmentin 875-125] See Taper PO DIRECTED Discharge Medication List Amoxicillin/Potassium Clav [Augmentin 875-125 Tablet] 1 tab PO Q12HR 10 Days #20 tab 07/18/21 [Rx] HYDROcodone/APAP 5-325MG [[place] 5-325] 1 each PO Q6HR PRN 3 Days #12 tab [Rx] Follow up Appointment(s)/Referral(s): Daryn Arcos DDS [STAFF PHYSICIAN] - 1 Week None,Stated [Primary Care Provider] - 1-2 days Patient Instructions/Handouts: Dental Abscess (GEN) Discharge Disposition: HOME SELF-CARE
== END 2021-07-18 14:23 | disposition home or self-care (01) | DRG 158 ==
LOC: EC 04:28 → 6NMEDSUR 06:31 → OBSVTOIN 13:21 → 4SSUR 13:43
PROVIDERS: ADMIT Internal Medicine; ATTEND Internal Medicine
PROC: 0J950ZZ Drainage of Left Neck Subcutaneous Tissue and Fascia, Open Approach (ICD-10-PCS; principal; 2021-07-17 10:30)
DX: K04.7 Periapical abscess without sinus (principal); L02.11 Cutaneous abscess of neck; L03.221 Cellulitis of neck; M27.2 Inflammatory conditions of jaws; R13.10 Dysphagia, unspecified; F17.210 Nicotine dependence, cigarettes, uncomplicated
CPT/HCPCS: 36415; 70490; 70491; 80053; 83605; 83735; 85025; 86140; 87040; 87070; 87075; 87205; 96365; 96367; 96375; 99284